=== PATIENT | female | born 1985 | race Two or more races ===

== ENCOUNTER 2023-01-03 16:37 | Emergency (ER) | payer MEDICAID ==
[~2023-01-03] VITALS: Ht 149.9 cm; Wt 68.2 kg
[~2023-01-03 16:37] MED LIST: NAUSEA MEDICATION; PRENATAL VIT
[2023-01-03] MEDS ORDERED: KETOROLAC TROMETH 60MG/2ML VIAL IM ONE (17:00)
[2023-01-03 19:47] LABS: Urine Bacteria NONE SEEN /hpf (None Seen); Urine Blood Negative /uL (Negative); Urine Specific Gravity 1.026 (1.001-1.035); Urine WBC 2 /hpf (0 - 5)
[2023-01-03] MEDS ORDERED: IBUP800T26 PO (22:48)
[2023-01-03] MEDS ORDERED: HYDR-4798 PO (22:48)
[2023-01-03 22:56] VITALS: BP 123/74
== END 2023-01-03 22:59 | disposition home or self-care (01) ==
LOC: ER 16:37
DX: N83.201 Unspecified ovarian cyst, right side (principal); N83.202 Unspecified ovarian cyst, left side; Z79.899 Other long term (current) drug therapy
CPT/HCPCS: 36415; 76801; 76817; 81001; 81025; 84702; 96372; 99284; J1885